=== PATIENT | female | born 2000 | race Two or more races ===

== ENCOUNTER 2022-09-21 16:20 | Emergency (ER) | payer MEDICAID, OTHER ==
[~2022-09-21] VITALS: Ht 157.5 cm; Wt 67.0 kg
[2022-09-21 20:38] LABS: Urine Bacteria FEW /hpf (None Seen); Urine Blood 1+ /uL (Negative); Urine Specific Gravity 1.005 (1.001-1.035); Urine WBC 4 /hpf (0 - 5)
[2022-09-21 21:56] LABS: Basophils # (auto) 0.1 10 ^3/uL (0-0.2); Eosinophils # (auto) 0.1 10 ^3/uL (0-0.8); Eosinophils % (auto) 0.6 % (0.0-7.0); Hematocrit 39.8 % (36.0-46.0); Hemoglobin 13.5 g/dL (12.2-16.2); Lymphocytes # (auto) 2.3 10 ^3/uL (0.4-5.4); Mean Corpuscular Hemoglobin 28.4 pg (28.0-32.0); Mean Corpuscular Hgb Conc. 33.8 g/dL (32.0-36.0); Mean Corpuscular Volume 83.8 fL (80.0-100.0); Monocytes # (auto) 0.5 10 ^3/uL (0-1.3); Monocytes % (auto) 5.6 % (0.0-12.0); Neutrophils # (auto) 6.2 10 ^3/uL (1.6-8.6); Neutrophils % (auto) 67.8 % (37.0-80.0); Nucleated Red Blood Cells % 0.1 %; Red Blood Cells 4.75 10^6/uL (4.0-5.20); Red Cell Distribution Width 13.8 % (11.8-14.3); White Blood Cell 9.2 10^3/uL (4.4-10.8)
[2022-09-21 22:10] LABS: Albumin 3.7 g/dL (3.4-5.0); Anion Gap 6 (5-15); Blood Alcohol < 3.0 mg/dL (0-5); Blood Urea Nitrogen 7 mg/dL (7-18); Calcium 8.9 mg/dL (8.5-10.1); Carbon Dioxide 25 mmol/L (21-32); Chloride 108 mmol/L (98-107); Glucose 87 mg/dL (74-106); Potassium 3.8 mmol/L (3.5-5.1); Sodium 139 mmol/L (136-145)
[2022-09-21 22:12] LABS: Salicylate < 1.7 mg/dL (2.8-20.0)
[2022-09-21 22:14] LABS: Alanine Aminotransferase 15 U/L (13-56); Alkaline Phosphatase 64 U/L (45-117); Aspartate Aminotransferase 10 U/L (15-37); Bilirubin, Total 0.1 mg/dL (0.2-1.0); GFR African American 182 mL/min; GFR Non-African American 150 mL/min; Total Protein 7.9 g/dL (6.4-8.2)
[2022-09-21 22:56] LABS: Acetaminophen < 2.0 ug/mL (10-30)
[2022-09-22 10:13] LABS: Alcohol, Urine < 3.0 mg/dL (0-10); Amphetamine Screen, Urine NEGATIVE (NEGATIVE); Barbiturate Scree,Urine NEGATIVE (NEGATIVE); Benzodiazephine Screen, Urine NEGATIVE (NEGATIVE); Cannabinoid Screen, Urine NEGATIVE (NEGATIVE); Cocaine Screen, Urine NEGATIVE (NEGATIVE); Opiate Scree,Urine NEGATIVE (NEGATIVE); Phencyclidine Screen, Urine NEGATIVE (NEGATIVE)
[2022-09-22] MEDS: FLUoxetine HCL 20 MG CAP PO SCH (12:33)
[2022-09-23] MEDS: FLUoxetine HCL 20 MG CAP PO SCH ×2 (09:46→09:48)
[2022-09-23 15:56] VITALS: BP 117/68
== END 2022-09-23 19:21 | disposition left against medical advice (07) ==
LOC: ER 16:20 → EDBD 16:20 → ER 09-23 19:20
DX: R45.851 Suicidal ideations (principal); F41.9 Anxiety disorder, unspecified; F32.9 Major depressive disorder, single episode, unspecified; R10.2 Pelvic and perineal pain
CPT/HCPCS: 36415; 80053; 80307; 80320; 80329; 81001; 84702; 85025